=== PATIENT | male | born 1970 | race Caucasian/White ===

== ENCOUNTER 2020-05-04 15:08 | Emergency (ER) | payer OTHER ==
[~2020-05-04] VITALS: Ht 200.7 cm; Wt 136.1 kg
[~2020-05-04 15:08] MED LIST: AMIGESIC500 MG; CLONAZEPAM 1 MG1 M1 PO; CYCLOBENZAPRINE10 MG PO; FLEXERIL PO; HYDROCODONE-AP1 EAC6 PO; HYDROCODONE-APA1 TA1 PO; IBUPROFEN 200200 M1 PO; KEFLEX500 MG PO; NORCO 5-325 TA1 EACH PO; PAROXETINE HCL10 MG PO; PREDNISONE 10 M10 MG PO; ZESTRIL2.5 MG
[2020-05-04] MEDS ORDERED: ZYRTEC10 M5 PO (15:18)
[2020-05-04 15:22] LABS: ABSOLUTE BASOPHILS 0.1 thou/uL (0.0-0.2); ABSOLUTE EOSINOPHILS 0.2 thou/uL (0.0-0.7); ABSOLUTE LYMPHOCYTES 2.4 thou/uL (0.8-5.3); ABSOLUTE MONOCYTES 0.6 thou/uL (0.0-1.2); ABSOLUTE NEUTROPHILS 7.7 thou/uL (1.6-8.1); BASOPHILS 1.2 %; EOSINOPHILS 2.1 %; HEMATOCRIT 48.1 % (42.0-52.0); HEMOGLOBIN 16.3 gm/dL (14.0-18.0); LYMPHOCYTES 21.5 %; MCH 28.3 pg (26.0-34.0); MCHC 33.9 g/dL (28.0-37.0); MCV 83.4 fL (80.0-100.0); MONOCYTES 5.2 %; MPV 8.3 fl. (7.2-11.1); NUCLEATED RBCS 0 /100WBC; PLATELET COUNT* 316 thou/uL (150-400); RBC 5.76 mil/uL (4.50-6.00); RDW-CV 13.9 % (10.5-14.5); WBC 11.1 thou/uL (4.0-11.0)
[2020-05-04 15:31] LABS: CALCIUM 9.2 mg/dL (8.5-10.1); CREATININE 1.4 mg/dL (0.6-1.3); POTASSIUM 4.2 mmol/L (3.5-5.1)
[2020-05-04 15:35] LABS: TOTAL BILIRUBIN 0.5 mg/dL (<0.1-1.0); TOTAL PROTEIN 8.2 g/dL (6.4-8.2)
[2020-05-04] MEDS ORDERED: IBUPROFEN 800800 MG PO (19:16)
[2020-05-04] MEDS ORDERED: HYDROCODON-ACE1 EAC7 PO (19:16)
[2020-05-04] MEDS ORDERED: KEFLEX500 M1 PO (19:16)
[2020-05-04 19:47] VITALS: BP 121/82
== END 2020-05-04 19:47 | disposition home or self-care (01) ==
LOC: M.ERS 15:08
PROVIDERS: Personal Emergency Response Attendant
DX: S31.114A Laceration without foreign body of abdominal wall, left lower quadrant without penetration into peritoneal cavity, initial encounter (principal); J45.909 Unspecified asthma, uncomplicated; Z88.0 Allergy status to penicillin; V29.9XXA Motorcycle rider (driver) (passenger) injured in unspecified traffic accident, initial encounter; Y93.89 Activity, other specified; Y92.89 Other specified places as the place of occurrence of the external cause; Y99.8 Other external cause status

== ENCOUNTER 2020-05-17 17:59 | Emergency (ER) | payer OTHER ==
[~2020-05-17] VITALS: Ht 200.7 cm; Wt 138.3 kg
[~2020-05-17 17:59] MED LIST changes: +HYDROCODON-ACE1 EAC7 PO; +IBUPROFEN 800800 MG PO; +KEFLEX500 M1 PO; +ZYRTEC10 M5 PO
[2020-05-17] MEDS ORDERED: DOXYCYCLINE 10100 MG PO (18:59)
[2020-05-17 19:01] VITALS: BP 179/111
== END 2020-05-17 19:03 | disposition home or self-care (01) ==
LOC: M.ERS 17:59
DX: S31.114D Laceration without foreign body of abdominal wall, left lower quadrant without penetration into peritoneal cavity, subsequent encounter (principal); J45.909 Unspecified asthma, uncomplicated; Z88.0 Allergy status to penicillin; X58.XXXD Exposure to other specified factors, subsequent encounter

== ENCOUNTER 2020-12-11 03:24 | Emergency (ER) | payer OTHER ==
[~2020-12-11] VITALS: Ht 200.7 cm; Wt 176.9 kg
[~2020-12-11 03:24] MED LIST changes: +DOXYCYCLINE 10100 MG PO
[2020-12-11] MEDS ORDERED: NAPROSYN500 MG PO (04:50)
[2020-12-11] MEDS ORDERED: ACETAMINOPHEN-1 EAC2 PO (04:50)
[2020-12-11] MEDS ORDERED: CLEOCIN HCL150 M1 PO (04:58)
[2020-12-11 05:05] VITALS: BP 152/79
== END 2020-12-11 05:05 | disposition home or self-care (01) ==
LOC: M.ERS 03:24
DX: K08.89 Other specified disorders of teeth and supporting structures (principal); J45.909 Unspecified asthma, uncomplicated; Z88.0 Allergy status to penicillin

== ENCOUNTER 2021-05-28 18:13 | Emergency (ER) | payer OTHER ==
[~2021-05-28] VITALS: Ht 200.7 cm; Wt 136.1 kg
[~2021-05-28 18:13] MED LIST changes: +ACETAMINOPHEN-1 EAC2 PO; +CLEOCIN HCL150 M1 PO; +NAPROSYN500 MG PO
[2021-05-28 18:25] VITALS: BP 131/95
[2021-05-28] MEDS ORDERED: DOXYCYCLINE 10100 MG PO (18:42)
[2021-05-28] MEDS ORDERED: CENTANY30 GM TOP (18:43)
== END 2021-05-28 18:50 | disposition home or self-care (01) ==
LOC: M.ERS 18:13
DX: L03.116 Cellulitis of left lower limb (principal); L03.115 Cellulitis of right lower limb; J45.909 Unspecified asthma, uncomplicated

== ENCOUNTER 2021-06-01 03:28 | Emergency (ER) | payer OTHER ==
[~2021-06-01] VITALS: Ht 200.7 cm; Wt 136.1 kg
[~2021-06-01 03:28] MED LIST changes: +CENTANY30 GM TOP
[2021-06-01 04:34] LABS: ABSOLUTE BASOPHILS 0.1 thou/uL (0.0-0.2); ABSOLUTE EOSINOPHILS 0.5 thou/uL (0.0-0.7); ABSOLUTE LYMPHOCYTES 2.3 thou/uL (0.8-5.3); ABSOLUTE MONOCYTES 1.2 thou/uL (0.0-1.2); ABSOLUTE NEUTROPHILS 10.6 thou/uL (1.6-8.1); BASOPHILS 0.9 %; EOSINOPHILS 3.6 %; LYMPHOCYTES 15.6 %; MCH 27.7 pg (26.0-34.0); MCHC 34.1 g/dL (28.0-37.0); MCV 81.3 fL (80.0-100.0); MONOCYTES 7.9 %; MPV 7.7 fl. (7.2-11.1); NUCLEATED RBCS 0 /100WBC; PLATELET COUNT* 308 thou/uL (150-400); RBC 5.04 mil/uL (4.50-6.00); RDW-CV 14.3 % (10.5-14.5); WBC 14.7 thou/uL (4.0-11.0)
[2021-06-01 04:46] LABS: CALCIUM 8.4 mg/dL (8.5-10.1); CREATININE 1.3 mg/dL (0.6-1.3); POTASSIUM 3.9 mmol/L (3.5-5.1)
[2021-06-01 04:49] LABS: ALBUMIN 2.7 g/dL (3.4-5.0); TOTAL BILIRUBIN 0.3 mg/dL (<0.1-1.0); TOTAL PROTEIN 6.9 g/dL (6.4-8.2)
[2021-06-01 06:00] VITALS: BP 156/78
--- NOTE | 2021-06-01 11:51 | EKG ---
[place] [address] ELECTROCARDIOGRAM REPORT Name: CHEPE RICE Room: [facility]#: [id number] Admission: 06/01/21 Attend Phys: Discharge: 06/01/21 Date of : 74 Date of Service: 06/01/21 0358 Report #: [id number] THIS REPORT FOR: //name// [facility] ED Test Date: 2021-06-01 Test Time: 03:58:47 Pat Name: CHEPE RICE Department: Room: Gender: [place]: [place] : 1970 Requested By: Yoli Ram Order Number: [id number] MD: Rodri Mcintyre Measurements Intervals [place] Rate: 89 P: 27 TN: 143 QRS: 74 QRSD: 99 T: 68 QT: 359 QTc: 437 Interpretive Statements Sinus rhythm No previous ECG available for comparison Electronically Signed On 06-01-2021 11:51:38 CDT by Rodri Mcintyre [email or web address] <ELECTRONICALLY SIGNED> By: Rodri Mcintyre MD, [facility] 06/01/21 1151 0358 0358 Rodri Mcintyre MD, FACC /EPI
== END 2021-06-01 07:36 | disposition left against medical advice (07) ==
LOC: M.ERS 03:28
PROVIDERS: Emergency Medicine
DX: L03.115 Cellulitis of right lower limb (principal); J45.909 Unspecified asthma, uncomplicated; F17.210 Nicotine dependence, cigarettes, uncomplicated; Z88.0 Allergy status to penicillin